=== PATIENT | female | born 1980 ===

== ENCOUNTER 2021-12-03 09:42 | Outpatient (CLI) | payer OTHER ==
[~2021-12-03 09:42] MED LIST: KETO10TA2 PO
== END 2021-12-03 09:51 | disposition home or self-care (01) ==
LOC: MRI 09:42
PROVIDERS: ATTEND Internal Medicine
DX: M25.561 Pain in right knee (principal)
CPT/HCPCS: 73721

== ENCOUNTER 2022-01-23 09:24 | Outpatient (CLI) | payer OTHER | END 2022-01-23 09:31 | disposition home or self-care (01) | LOC: RAD 09:24 | PROVIDERS: ATTEND Orthopaedic Surgery | DX: S82.124A Nondisplaced fracture of lateral condyle of right tibia, initial encounter for closed fracture (principal); S82.034A Nondisplaced transverse fracture of right patella, initial encounter for closed fracture ==

== ENCOUNTER 2022-04-19 10:02 | Outpatient (CLI) | payer OTHER | END 2022-04-19 10:03 | disposition home or self-care (01) | LOC: LAB 10:02 | PROVIDERS: ATTEND Orthopaedic Surgery | DX: E55.9 Vitamin D deficiency, unspecified (principal); M85.9 Disorder of bone density and structure, unspecified; E56.1 Deficiency of vitamin K ==